=== PATIENT | female | born 1960 | race Caucasian/White ===

== ENCOUNTER 2016-04-06 05:47 | Day surgery (SDC) | payer OTHER ==
[2016-04-04 14:35] LABS: HEMATOCRIT 41.6 % (36.0-48.0); HEMOGLOBIN 13.4 g/dL (12-16); MCH 27.9 pg (26.0-34.0); MCHC 32.2 g/dL (31.0-37.0); MCV 86.7 fL (80.0-100.0); MEAN PLATELET VOLUME 8.6 fL (7.4-10.4); RBC 4.8 10x6/uL (4.00-5.40); RDW 13.3 % (11.5-14.5); WBC 11.3 10x3/uL (4.8-10.8)
[2016-04-04 14:54] LABS: ANION GAP 12.1 mmol/L (8-16); CALCIUM 9.2 mg/dL (8.5-10.1); CARBON DIOXIDE 32.4 mmol/L (21.0-32.0); CREATININE - SERUM 1.1 mg/dL (0.6-1.3); POTASSIUM - SERUM 4.5 mmol/L (3.5-5.1)
[~2016-04-06] VITALS: Ht 172.7 cm; Wt 157.8 kg
[~2016-04-06 05:47] MED LIST: FUROSEMIDE40 MG PO; HYDROCODONE-APA1 TAB PO; LANTUS U-100 INSULIN; LASIX40 MG PO; MICARDIS HCT 801 TAB PO; NOVOLOG100 U/M1 SC; OMEPRAZOLE40 MG PO; PHENERGAN25 M1 PO; PRAVACHOL40 MG PO; ROBAXIN-750750 MG PO; ZANAFLEX4 MG PO; ZESTRIL40 MG PO
[2016-04-06 07:03] VITALS: Ht 172.7 cm; Wt 157.8 kg
--- NOTE | 2016-04-06 10:23 | NUR ---
DR ROLANDO DAVENPORT FOR BP IN RR
--- NOTE | 2016-05-11 10:18 | HP ---
PATIENT: VAHE MCCLURE MEDICAL RECORD: [id number] ACCOUNT: [id number] LOCATION:[facility] : 60 ADMISSION DATE: 04/06/16 HISTORY AND PHYSICAL EXAMINATION CHIEF COMPLAINT: Complex polyp. HISTORY OF PRESENT ILLNESS: The patient has a complex polyp at 35 cm. It is a polypoid mass that cannot be resected utilizing conventional endoscopic techniques. The risks, possible complications and alternatives to colonoscopy with polypectomy and likely utilizing the argon plasma regional account executive were explained to the patient. She elects to proceed. PAST MEDICAL AND SURGICAL HISTORY: Polycystic ovarian syndrome, laparoscopic cholecystectomy, appendectomy, obesity, arthritis, polycystic kidneys, insulin-dependent diabetes mellitus, postoperative nausea and vomiting, hiatal hernia, hypertension and recent upper respiratory infection. SOCIAL HISTORY: Nonsmoker. REVIEW OF SYSTEMS: Negative for CHF or CVA. Negative for angina or myocardial infarction. ALLERGIES: NSAIDS, SULFA, SOMA, PROZAC, DILAUDID, MORPHINE, PAXIL. Lisinopril, Prilosec, Lantus, Lasix, Micardis, [place], NovoLog, Phenergan, pravastatin, Robaxin, Zanaflex, and Restoril. REVIEW OF SYSTEMS: Negative other than as is described above. PHYSICAL EXAMINATION: GENERAL: The patient does not appear acutely ill. She does appear chronically ill. VITAL SIGNS: Reviewed. The entire physical examination was performed in the presence of a female nurse. HEAD: External ears appear normal. FACE: She has a saranya face, nose. NECK: Trachea is midline. CHEST: No intercostal retractions. PULMONARY: Nonlabored and no stridor. ABDOMEN: Protuberant, obese with a panniculus. EXTREMITIES: No peripheral cyanosis. INTEGUMENT: There is intertriginous rash. PSYCHIATRIC: Normal affect. NEUROLOGIC: Nonfocal and no lethargy. The patient answers questions appropriately, moves all extremities well. BACK: No thoracic kyphosis. LYMPHATICS: No lymphangitic streaking of the exposed extremities. IMPRESSION: Complex polyp at 35 cm. PLAN: Colonoscopy and polypectomy utilizing argon plasma regional account executive. The risks, possible complications and alternatives to procedure were explained to the patient. She elects to proceed. The discussion specifically included, but was not limited to, bleeding requiring emergency reoperation, infection, HISTORY AND PHYSICAL [id number] VAHE MCCLURE endoscopic perforation and an open procedure. TRANSINT:[id number] Voice Confirmation ID: [id number] DOCUMENT ID: [id number] RENNY PHELAN MD at 1018 CC: JAZMYNE ANG MD and JAMAL MONGE MD [id number] DICTATION DATE: 04/06/16 1018 PRESSER AND BLOCKER KNITTED GOODS: 04/06/16 1044 [facility] 04/06/16 [place] [id number] [place] [id number]
--- NOTE | 2016-05-11 10:18 | OP ---
PATIENT NAME: VAHE MCCLURE MEDICAL RECORD: [id number] :60 LOCATION:D.[facility] ADMISSION DATE: SURGEON: RENNY PHELAN MD DATE OF OPERATION: 04/06/2016 PREOPERATIVE DIAGNOSIS: Large 5 cm sessile polyp at 35 cm in the sigmoid colon which has been tattooed. Too large to be removed safely endoscopically utilizing conventional endoscopic techniques. POSTOPERATIVE DIAGNOSES: Large 5 cm sessile polyp at 35 cm in the sigmoid colon which has been tattooed. Too large to be removed safely endoscopically utilizing conventional endoscopic techniques. Hot biopsy forceps polypectomy times 1. PROCEDURES: 1. Total colonoscopy to cecum. 2. Polypectomy, which was a piecemeal snare polypectomy with cold endoscopic biopsies and the argon plasma gold reclaimer to ablate the remainder of the polyp. 3. Hot biopsy forceps polypectomy times 1. An 8 mm sessile cecal polyp. 4. Epinephrine injection and clips. SURGEON: Renny Phelan MD TERMINOLOGIST: None. BLOOD LOSS: Minimal. ANESTHESIA: General. COMPLICATIONS: None. The risks, possible complications and alternatives to procedure were explained to the patient. She elects to proceed. The discussion specifically included, but was not limited to bleeding requiring emergency reoperation, infection, endoscopic perforation. OPERATIVE COURSE: The patient was conveyed to the operating room electively on 04/06/2016. General anesthesia was induced by the anesthesia staff. The patient was placed in the Rashid position. A digital rectal examination was performed. A colonoscope was inserted through the anus. It was easily advanced to the cecum. The prep was adequate. There was a cecal polyp, which was a sessile polyp. This was removed in its entirety utilizing hot biopsy forceps polypectomy technique. This polyp was best to visualized utilizing narrow band imaging. I slowly withdrew the endoscope. I dragged the folds. The pullback was greater than a 14-minute pullback. The 35 cm multilobulated wide, somewhat pedunculated polypoid mass was noted. I was fearful of postoperative bleeding. For this reason, I elected for a submucosal epinephrine injection to cause vasoconstriction of any arteries feeding this polypoid mass. I advanced a sclerotherapy needle. At three different sites at the base of the polyp, a submucosal injection of epinephrine was conducted. The nearby tattoos were easily visualized. The sclerotherapy needle was removed. I then advanced a snare. Utilizing a piecemeal snare polypectomy technique, I snared portions of the polyp. Portions of this polyp were suctioned up into the polyp trap. Portions were retrieved with a retrieval net. Some additional cold endoscopic biopsies were obtained at the base of the polyp. Remaining polypoid tissue at OPERATIVE REPORT [id number] VAHE MCCLURE the base of the polyp was ablated utilizing the argon plasma gold reclaimer with the right colon setting in the force mode. To reinforce this repair as I had to go fairly deep to resect this polyp which was on a fold, I reinforced this with three endoscopic clips which were placed, 2 on one side of the fold and 1 on the other side of the fold. I noted no evidence of full thickness burn. No evidence of perforation. The endoscope was withdrawn into the rectum. Retroflexed views obtained in the rectum. I then unretroflexed the scope and removed it under direct vision. I will see the patient in my office in 2-3 weeks. At that time, we will discuss further therapies that may be necessary. If no invasive malignancy is identified, then I will plan for another colonoscopy with argon plasma gold reclaimer in a year. If an invasive malignancy is identified then the patient will require a formal oncologic resection. TRANSINT:[id number] Voice Confirmation ID: [id number] DOCUMENT ID: [id number] RENNY PHELAN MD at 1018 CC: JAZMYNE ANG MD and JAMAL MONGE MD [id number] DICTATION DATE: 04/06/16 1035 QUICKBOOKS BOOKKEEPER: 04/06/16 1112 [facility] 04/06/16 [place] [id number] [place] [address]
== END 2016-04-06 13:40 | disposition home or self-care (01) ==
LOC: D.OPS 05:47 → D.PAN 08:00 → D.OPS 12:30
PROVIDERS: Anesthesiology
DX: D12.5 Benign neoplasm of sigmoid colon (principal); K63.5 Polyp of colon; E28.2 Polycystic ovarian syndrome; E66.9 Obesity, unspecified; M19.90 Unspecified osteoarthritis, unspecified site; Q61.3 Polycystic kidney, unspecified; E11.9 Type 2 diabetes mellitus without complications; K44.9 Diaphragmatic hernia without obstruction or gangrene; I10 Essential (primary) hypertension; Z79.4 Long term (current) use of insulin; Z79.891 Long term (current) use of opiate analgesic; Z79.899 Other long term (current) drug therapy; Z88.6 Allergy status to analgesic agent; Z88.2 Allergy status to sulfonamides; Z88.8 Allergy status to other drugs, medicaments and biological substances

== ENCOUNTER 2016-09-02 08:43 | Day surgery (SDC) | payer MEDICARE ==
[~2016-09-02] VITALS: Ht 172.7 cm; Wt 146.4 kg
[~2016-09-02 08:43] MED LIST changes: +LANTUS INSULIN10 ML SC; -LANTUS U-100 INSULIN
[2016-09-02] MEDS ORDERED: PROTONIX40 MG PO (09:43)
[2016-09-02] MEDS ORDERED: DURAGESIC1 PATCH .7 TRANSDERM (09:43)
[2016-09-02] MEDS ORDERED: CARAFATE1 G PO (09:44)
[2016-09-02 09:55] VITALS: BP 142/65; Ht 172.7 cm; Wt 146.4 kg
[2016-09-02 10:11] LABS: BASOPHILS 0.2 % (0-2); HEMATOCRIT 35.6 % (36.0-48.0); HEMOGLOBIN 11.3 g/dL (12-16); IMMATURE GRANULOCYTES 0.2 % (0-5); LYMPHOCYTES 22.6 % (15-50); MCHC 31.7 g/dL (31.0-37.0); MCV 88.1 fL (80.0-100.0); MEAN PLATELET VOLUME 8.9 fL (7.4-10.4); MONOCYTES 5.9 % (2-11); NEUTROPHILS 67.1 % (40-80); PLATELET COUNT 265 10x3/uL (130-400); RBC 4.04 10x6/uL (4.00-5.40); RDW 13.4 % (11.5-14.5); WBC 8.5 10x3/uL (4.8-10.8)
[2016-09-02 10:16] LABS: ANION GAP 13.2 mmol/L (8-16); CALCIUM 8.9 mg/dL (8.5-10.1); CARBON DIOXIDE 28.4 mmol/L (21.0-32.0); CREATININE - SERUM 1.5 mg/dL (0.6-1.3); POTASSIUM - SERUM 4.6 mmol/L (3.5-5.1)
[2016-09-02 11:48] LABS: ALBUMIN 3.6 g/dL (3.4-5.0); BILIRUBIN - TOTAL 0.5 mg/dL (0.2-1.3); PROTEIN - SERUM 7.5 g/dL (6.4-8.2); THYROID STIMULATING HORMONE 2.9 uIU/mL (0.36-3.74)
--- NOTE | 2016-09-02 13:08 | NUR ---
1300--PT TO RADIOLOGY FOR CT. YOANA ALBRIGHT
--- NOTE | 2016-09-02 13:29 | NUR ---
1325--PT BACK FROM CT, FULL LIQUID TRAY SERVED. YOANA RN
--- NOTE | 2016-09-02 14:15 | NUR ---
1410--DISCHARGE INSTRUCTIONS GIVEN, PT VERBALIZES UNDERSTANDING. PT OFF UNIT VIA FREEDOM. YOANA ALBRIGHT
--- NOTE | 2016-09-03 14:11 | HP ---
PATIENT: VAHE MCCLURE MEDICAL RECORD: [id number] ACCOUNT: [id number] LOCATION:[facility] : 60 ADMISSION DATE: 09/02/16 HISTORY AND PHYSICAL EXAMINATION DATE OF SERVICE: 09/02/2016 REFERRING PHYSICIAN: Jazmyne Ang MD. HISTORY OF PRESENT ILLNESS: The patient is a 56-year-old white female who basically presents with a several month history of a reported weight loss of about 20 pounds associated with off and on nausea and vomiting. She denies much abdominal pain. I saw her in February of this past year for colonoscopy. That exam revealed a large 4-5 cm villous adenoma in the sigmoid colon as well as a couple of diminutive cecal polyps and small internal hemorrhoids. She was referred to surgery, who was able to remove this endoscopically with argon plasma hand flatwork finisher. She has had persistent weight loss despite trials of PPI. She denies any significant abdominal pain. She has had a recent loss in the family, i.e. her , back in June of this year. This could be some factor. She does not have a gallbladder. She now presents for evaluation. Past medical history is remarkable for diabetes, hypertension and some arthritic issues. She also has polycystic ovarian syndrome and hyperlipidemia. PAST SURGICAL HISTORY: Remarkable for her colonoscopy, a couple of breast biopsies, cholecystectomy and appendectomy. PAST MEDICAL HISTORY: As above. SOCIAL HISTORY: The patient is a nonsmoker and nondrinker. FAMILY HISTORY: Positive for colon polyps with her father and sister. ALLERGIES: DILAUDID, MORPHINE AND NSAIDS CAUSE HER TO HAVE SOME GI BLEEDING. MEDICATIONS: Include NovoLog, Lantus, lisinopril, Robaxin, Zanaflex, Protonix, fentanyl patch and Phenergan p.r.n. PHYSICAL EXAMINATION: GENERAL: Reveals a somewhat obese white female, in no acute distress. VITAL SIGNS: Stable. She is afebrile. CHEST: Clear. HEART: Regular rate and rhythm. ABDOMEN: Soft, nontender. EXTREMITIES: No edema. IMPRESSION: 1. Nausea, vomiting and weight loss of unclear etiology. She is already status post cholecystectomy and started on a PPI. Need to rule out some type of underlying malignancy. This could be related to diabetes and gastroparesis. She denies any issues of obstipation. 2. History of large sigmoid colon polyps, status post recent resection and scope by Dr. Barrow as noted above. HISTORY AND PHYSICAL [id number] VAHE MCCLURE 3. History of insulin-dependent diabetes mellitus and polycystic ovarian syndrome. RECOMMENDATION: 1. EGD. 2. Depending on the above, consider checking a CBC, CMP, TSH, CT of the abdomen, etc. TRANSINT:[id number] Voice Confirmation ID: [id number] DOCUMENT ID: [id number] JAMAL MONGE MD at 1411 CC: JAZMYNE ANG MD [id number] DICTATION DATE: 09/02/16 1047 HEAT TREAT WORKER: 09/02/16 1138 [facility] 09/02/16 [place] [id number] [place] [address]
--- NOTE | 2016-09-03 14:11 | PRO ---
PATIENT:VAHE MCCLURE MEDICAL RECORD: [id number] : 60 LOCATION:D.[facility] ADMISSION DATE: 09/02/16 PROCEDURE PERFORMED BY: RONALDO MONTERROSO MD DATE OF PROCEDURE: 09/02/2016 EXTRUSION TECHNICIAN: Ronaldo Monterroso MD PROCEDURE: EGD with TIVA and biopsy. INDICATION: The patient is a 56-year-old white female with history of diabetes, obesity, who basically presents for evaluation of persistent problems with nausea and vomiting and reported 20-25 pound weight loss for the past 6 months or so. She denies any significant abdominal pain. She is status post cholecystectomy. She has occasional loose stool and denies constipation. She had a colonoscopy about 6 months ago that revealed a large sigmoid polyp that had to be removed by argon plasma coagulation by Dr. Barrow, otherwise her colon was essentially normal. She is now for EGD. PREMEDICATION: TIVA for anesthesia INSTRUMENT: Olympus video gastroscope. FINDINGS: The endoscope was passed through the oropharynx to the second portion of the duodenum without difficulty. The esophagus, stomach and duodenum were all basically unremarkable other than some minimal gastritis. There was no hiatal hernia or active esophagitis, ulceration or mass lesions seen. Biopsy obtained from stomach to rule out H. pylori by means of histology. I also took some biopsies from second portion of duodenum to rule out celiac sprue. The patient tolerated the procedure well without any immediate complications. IMPRESSION: Minimal gastritis, otherwise normal EGD without any reason, seemed to account for the patient's symptomatology. RECOMMENDATIONS: 1. Follow up biopsy results. 2. Okay to continue Protonix. 3. Check a CBC, CMP, TSH and CT of the abdomen and pelvis with IV contrast. TRANSINT:[id number] Voice Confirmation ID: [id number] DOCUMENT ID: [id number] RONALDO MONTERROSO MD at 1411 CC: JAZMYNE ANG MD [id number] DICTATION DATE: 09/02/16 1116 TERMITE EXTERMINATOR HELPER: 09/03/16 0137 [facility] 09/02/16 [place] [id number] [place] [address]
== END 2016-09-02 14:10 | disposition home or self-care (01) ==
LOC: D.OPS 08:43
PROVIDERS: Anesthesiology
DX: R63.4 Abnormal weight loss (principal); R11.2 Nausea with vomiting, unspecified; G47.30 Sleep apnea, unspecified; I10 Essential (primary) hypertension; K21.9 Gastro-esophageal reflux disease without esophagitis; E11.9 Type 2 diabetes mellitus without complications; E66.01 Morbid (severe) obesity due to excess calories; Z68.42 Body mass index [BMI] 45.0-49.9, adult; Z01.812 Encounter for preprocedural laboratory examination

== ENCOUNTER 2017-05-10 05:10 | Day surgery (SDC) | payer MEDICARE ==
--- NOTE | ~2017-05-10 | OP ---
PATIENT NAME: VAHE MCCLURE MEDICAL RECORD: [id number] :60 LOCATION:[facility] ADMISSION DATE: SURGEON: RENNY PHELAN MD DATE OF OPERATION: 05/10/2017 PRINCIPAL DIAGNOSIS: History of complex colon polyps. POSTOPERATIVE DIAGNOSES: 1. History of complex colon polyps with significant regrowth of a tattooed colon polyp at 30 cm. 2. New growth of a small sessile, 9 mm colon polyp in the ascending colon. PROCEDURES: 1. Total colonoscopy to cecum. 2. Hot biopsy forceps polypectomy times 1. 3. Snare piecemeal polypectomy with epinephrine injection and tattooing of the recurrent complex polyp at 30 cm. SURGEON: Renny Phelan MD PERMASTONE INSTALLER: None. BLOOD LOSS: Minimal. ANESTHESIA: General. COMPLICATIONS: None. The risks, possible complications, and alternatives to the procedure were explained to the patient. She elects to proceed. The discussion specifically included, but was not limited to, bleeding requiring emergency reoperation, infection, endoscopic perforation. ENDOSCOPIC COURSE: The patient was conveyed to the operating room electively on 05/10/2017. General anesthesia was induced by the anesthesia staff. The patient was placed in the Rashid position. A digital rectal examination was performed. A colonoscope was inserted through the anus. It was easily advanced to the cecum. The prep was adequate. I slowly withdrew the endoscope. I dragged the folds. Combination of direct imaging as well as narrow band imaging were utilized. The pullback was greater than an 18-minute pullback. A polyp was noted in the ascending colon and this was removed in its entirety utilizing the hot biopsy forceps polypectomy technique. I then withdrew to 30 cm. I noted a significant regrowth of a semi-pedunculated polyp. I advanced a sclerotherapy needle. At the base of the polyp, I injected an epinephrine for hemostasis. I then advanced an endoscopic snare. Utilizing the snare twice, I performed a piecemeal polypectomy. Each of these pieces of the polyp were withdrawn and captured. I then took some more cold endoscopic biopsies at the base of the polyp. The polypoid base was then ablated with the argon plasma uke driver utilizing the right colon setting in the forced mode. As the tattoo was fading, I want to make sure that I can identify this area in the future as it is in a tortuous narrowed portion of the colon. I advanced a sclerotherapy needle. A cross from the polyp, I injected a total of 3 cc of [place]og[place] ink as a new tattoo. The endoscope was then withdrawn into the rectum. A OPERATIVE REPORT [id number] VAHE MCCLURE retroflexed view was obtained in the rectum. I then unretroflexed the scope and removed it under direct vision. TRANSINT:[id number] Voice Confirmation ID: [id number] DOCUMENT ID: [id number] RENNY PHELAN MD at 1607 CC: JAMAL MONGE MD [id number] DICTATION DATE: 05/10/17 1208 COMMUNITY OUTREACH SPECIALIST: 05/10/17 1405 [facility] 05/10/17 [place] [id number] [place] [address]
[~2017-05-10 05:10] MED LIST changes: +CARAFATE1 G PO; +DURAGESIC1 PATCH .7 TRANSDERM; +PROTONIX40 MG PO; -ZANAFLEX4 MG PO; +ZANAFLEX6 MG PO
[2017-05-10 05:53] LABS: HEMATOCRIT 36.6 % (36.0-48.0); HEMOGLOBIN 12.1 g/dL (12-16); MCH 27.8 pg (26.0-34.0); MCHC 33.1 g/dL (31.0-37.0); MCV 84.1 fL (80.0-100.0); MEAN PLATELET VOLUME 8.3 fL (7.4-10.4); RBC 4.35 10x6/uL (4.00-5.40); RDW 13.6 % (11.5-14.5); WBC 7.6 10x3/uL (4.8-10.8)
[2017-05-10 06:06] LABS: ANION GAP 11.6 mmol/L (8-16); CALCIUM 8.9 mg/dL (8.5-10.1); CARBON DIOXIDE 28.4 mmol/L (21.0-32.0); CREATININE - SERUM 1.1 mg/dL (0.6-1.3)
[2017-05-10 06:33] VITALS: BMI 51.8
== END 2017-05-10 12:00 | disposition home or self-care (01) ==
LOC: D.PAN 05:10 → D.OPS 08:00 → D.PAN 12:00
PROVIDERS: Anesthesiology
DX: D12.4 Benign neoplasm of descending colon (principal); D12.5 Benign neoplasm of sigmoid colon; Z86.010 Personal history of colon polyps; Z01.812 Encounter for preprocedural laboratory examination

== ENCOUNTER → 2017-08-31 17:31 | Outpatient (CLI) | payer MEDICARE | END | disposition home or self-care (01) | LOC: D.MAMMO 15:45 | DX: Z12.31 Encounter for screening mammogram for malignant neoplasm of breast (principal) ==

== ENCOUNTER 2017-09-04 10:00 | Day surgery (SDC) | payer MEDICARE ==
[2017-09-01 10:55] LABS: HEMATOCRIT 35.8 % (36.0-48.0); HEMOGLOBIN 11.8 g/dL (12-16); MCH 28.6 pg (26.0-34.0); MCV 86.9 fL (80.0-100.0); MEAN PLATELET VOLUME 8.4 fL (7.4-10.4); RBC 4.12 10x6/uL (4.00-5.40); RDW 13.8 % (11.5-14.5); WBC 7.7 10x3/uL (4.8-10.8)
[2017-09-01 11:08] LABS: ANION GAP 9.5 mmol/L (8-16); CALCIUM 8.8 mg/dL (8.5-10.1); CREATININE - SERUM 1.4 mg/dL (0.6-1.3); POTASSIUM - SERUM 4.5 mmol/L (3.5-5.1)
[~2017-09-04] VITALS: Ht 172.7 cm; Wt 139.7 kg
--- NOTE | ~2017-09-04 | OP ---
PATIENT NAME: VAHE MCCLURE MEDICAL RECORD: [id number] :60 LOCATION:D.OPS ADMISSION DATE: SURGEON: AINSLEY MONTANO MD DATE OF OPERATION: 09/04/2017 PREOPERATIVE DIAGNOSIS: Trigger thumb of the right hand. POSTOPERATIVE DIAGNOSIS: Trigger thumb of the right hand. PROCEDURE: Right trigger thumb release. SURGEON: Ainsley Montano MD ANESTHESIA: General. INTRAOPERATIVE COMPLICATIONS: None. SUMMARY OF PATHOLOGIC FINDINGS: The patient did have a very tight A1 brandon across the base of the thumb consistent with the diagnosis of trigger thumb. OPERATIVE SUMMARY IN DETAIL: After obtaining the appropriate preoperative orthopedic surgery consent as well as anesthetic consultation, evaluation and clearance, the patient was brought to the operating room and placed on the operating table in supine position. After adequate general TIVA anesthesia was administered, tourniquet was placed on the proximal aspect of the right upper extremity. Right upper extremity was then prepped and draped in routine sterile fashion. The arm was elevated and exsanguinated, tourniquet was inflated to 250 mmHg. Incision was made in the thumb base taken directly down to the brandon. Upon incision, substantial amounts of synovial fluid was expressed. The tendon was observed. It had some attritional changes, but there was no evidence for full-thickness tearing and good excursion of the flexor tendon of the thumb was noted. Having completed this, wound was irrigated and closed with 4-0 Prolene. Sterile dressings were applied. The patient was awakened and taken to recovery room in stable condition. All final needle and sponge counts were correct. Please note, the patient had local infiltration with half Marcaine and half lidocaine. TRANSINT:[id number] Voice Confirmation ID: [id number] DOCUMENT ID: [id number] AINSLEY MONTANO MD at 1856 CC: [id number] DICTATION DATE: 09/04/17 1454 STAFF SONOGRAPHER: 09/04/17 1528 [facility] 09/04/[address] [id number]
[2017-09-04 11:31] VITALS: BP 148/60; Ht 172.7 cm; Wt 139.7 kg
== END 2017-09-04 16:20 | disposition home or self-care (01) ==
LOC: D.OPS 10:00 → D.PAN 12:15 → D.OPS 12:15 → D.PAN 12:30 → D.OPS 13:45 → D.PAN 13:45 → D.OPS 16:20
PROVIDERS: Anesthesiology
DX: M65.311 Trigger thumb, right thumb (principal); Z01.812 Encounter for preprocedural laboratory examination